=== PATIENT | male | born 1980 | race Caucasian/White ===

== ENCOUNTER → 2024-07-07 09:43 | Outpatient (BNVA) | payer BC, SELFPAY | PROVIDERS: Family Provider Family Medicine; PCP Family Medicine; Visit Provider Family Medicine | DX: R06.2 Wheezing (principal) | CPT/HCPCS: 71046; 80053; 80061; 85025 ==

== ENCOUNTER 2024-08-05 10:44 | Outpatient (CLI) | payer BC, SELFPAY | END 2024-08-05 10:45 | disposition home or self-care (01) | PROVIDERS: PCP Family Medicine; Visit Provider Family Medicine | DX: R06.02 Shortness of breath (principal) | CPT/HCPCS: 94010; 94726; 94729 ==

== ENCOUNTER → 2024-12-02 12:16 | Outpatient (BNVA) | payer BC, SELFPAY | PROVIDERS: PCP Family Medicine; Visit Provider Family Medicine | DX: Z00.00 Encounter for general adult medical examination without abnormal findings (principal) | CPT/HCPCS: 80053; 80061; 85025 ==